=== PATIENT | female | born 1985 | race Two or more races ===

== ENCOUNTER 2024-08-31 19:44 | Emergency (ER) | payer OTHER ==
[~2024-08-31] VITALS: Ht 175.3 cm; Wt 130.4 kg
--- NOTE | 2024-08-31 21:57 | ED.PDOC ---
Gail. trauma (HPI) HPI Comments Pt C/O slip and fall today landing on her hands and knees. Pt C/O pain to the right shoulder and forearm, and bilateral knees. Pt has noted bruising and abrasions noted in triag. DENIES NUMBNESS, WEAKNESS, NECK PAIN, BACK PAIN, HEAD INJURY, OR LOC. 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 History Family History Family History: Reviewed,noncontributory to illness Social History Smoker: Non-Smoker Alcohol: Denies ETOH Use Drugs: Denies Drug Use Constitutional: denies: chills, diaphoresis, fatigue, fever, malaise, sweats, weakness, others EENTM: denies: blurred vision, double vision, ear bleeding, ear discharge, ear drainage, ear pain, ear ringing, eye pain, eye redness, hearing loss, mouth pain, mouth swelling, nasal discharge, nose bleeding, nose congestion, nose pain, photophobia, tearing, throat pain, throat swelling, voice changes, others Respiratory: denies: cough, hemoptysis, orthopnea, SOB at rest, shortness of breath, SOB with excertion, stridor, wheezing, others Cardiovascular: denies: chest pain, dizzy spells, diaphoresis, Dyspnea on exertion, edema, irregular heart beat, left arm pain, lightheadedness, pal pitations, PND, syncope, others Gastrointestinal: denies: abdomen distended, abdominal pain, blood streaked bowels, constipated, diarrhea, dysphagia, difficulty swallowing, hematemesis, melena, nausea, poor appetite, poor fluid intake, rectal bleeding, rectal pain, vomiting, others Genitourinary: denies: abnormal vagina bleeding, burning, dyspareunia, dysuria, flank pain, frequency, hematuria, incontinence, pain, , vagina discharge, urgency, others Neurological: denies: dizziness, fainting, headache, left sided numbness, left sided weakness, numbness, paresthesia, pre-existing deficit, right sided numbness, right sided weakness, seizure, speech problems, tingling, tremors, weakness, others Musculoskeletal: reports: others (RIGHT SHOULDER AND FOREARM PAIN.); denies: back pain, gout, joint pain, joint swelling, muscle pain, muscle stiffness, neck pain Integumetry: reports: bruises (FOREARM RIGHT); denies: change in color, change in hair/nails, dryness, laceration, lesions, lumps, rash, wounds, others Allergic/Immunocompromised: denies: Difficulty Healing, Frequent Infections, Hives, Itching, others Hematologic/Lymphatic: denies: anemia, blood clots, easy bleeding, easy bruising, swollen glands, others Endocrine: denies: excessive hunger, excessive sweating, excessive thirst, excessive urination, flushing, intolerance to cold, intolerance to heat, unexplained weight gain, unexplained weight loss, others Psychiatric: denies: anxiety, bipolar disorder, depression, hopeless, panic disorder, schizophrenia, sleepless, suicidal, others Physical Exam General Appearance: No Apparent Distress, Normal HEENT: Normal ENT Inspection, Pharynx Normal, TMs Normal Neck: Full Range of Motion, Non-Tender Respiratory: Chest Non-Tender, Lungs Clear, No Respiratory Distress, Normal Breath Sounds Cardiovascular: No Edema, No JVD, No Murmur, No Gallop, Normal Peripheral Pulses, Regular Rate/Rhythm Breast Exam: Deferred Gastrointestinal: No Organomegaly, Non Tender, No Pulsatile Mass, Normal Bowel Sounds, Soft Genitalia: Deferred Pelvic: Deferred Rectal: Deferred Extremities: Normal capillary refill, Normal inspection, Normal range of motion, Non-tender, No pedal edema Musculoskeletal : Location: Right Extremity Location: Forearm (MODERATE TENDERNESS AND EDEMA RIGHT ANTERIOR PROXIMAL FOREARM WITH NOTED ECCHYMOSIS NO NOTED ABRASIONS OR LACERATIONS STRENGTH SENSORY MOTION INTACT POSITIVE RADIAL PULSE. TENDERNESS PALPATED OVER RIGHT ANTERIOR SHOULDER WITHOUT NOTED CREPITUS, LESIONS, ABRASIONS OR LACERAT IONS FULL RANGE OF MOTION WITH DISCOMFORT), Shoulder Apperance: Normal Neurologic: Alert, project control analyst II-XII nml as Tested, No Motor Deficits, Normal Affect, Normal Mood, No Sensory Deficits Cerebellar Function: Normal Reflexes: Normal Skin: Dry, Normal Color, Warm Lymphatic: No Adenopathy Was a procedure done? Was a procedure done?: No Differential Diagnosis Multiple Trauma: Fractures, Abrasions, Contusion, Hematoma, Laceration X-Ray, Labs, Meds, VS Vital Signs Date Time Temp Pulse Resp B/P (MAP) Pulse Ox O2 Delivery O2 Flow Rate FiO2 08/31/24 20:25 97.9 75 18 148/98 (115) 98 Current Medications Medications (Trade) Dose Ordered Sig/Ernesto Route Start Time Stop Time Status Last Admin Acetaminophen/ Hydrocodone Bitart ([place] 5/325MG Tab) 1 tab ONCE ONCE PO 08/31/24 22:15 08/31/24 22:16 DC 08/31/24 22:33 X-Ray, Labs, Meds, VS Comment RIGHT FOREARM AND RIGHT SHOULDER X-RAY SHOWS NO ACUTE FINDINGS OR OSSEOUS LESIONS. WE WILL SCRIPT MUSCLE RELAXER AND MEDROL DOSEPAK. DISCUSSED RICE. ADVISED TO FOLLOW UP WITH HER PCP IN 2-3 DAYS CONSIDER FURTHER IMAGING FOR CON TINUED SYMPTOMS. ER RETURN PRECAUTIONS GIVEN PATIENT INDICATES UNDERSTANDING AND AGREES WITH DISCHARGE PLAN OF CARE. Time of 1ST Reevaluation: 22:48 Reevaluation 1ST: Improved Patient Education/Counseling: Diagnosis, Treatment, Prognosis, Need For Follow Up Family Education/Counseling: No Family Present Departure 1 Departure Time of Disposition: 22:48 Impression: Primary Impression: Contusion of forearm, right Qualified Codes: S50.11XA - Contusion of right forearm, initial encounter Additional Impressions: Right shoulder strain Qualified Codes: S46.911A - Strain of unspecified muscle, fascia and tendon at shoulder and upper arm level, right arm, initial encounter Contusion of left knee Qualified Codes: S80.02XA - Contusion of left knee, initial encounter Contusion of right knee Qualified Codes: S80.01XA - Contusion of right knee, initial encounter Disposition: HOME / SELF CARE / HOMELESS Condition: Stable e-Prescriptions Cyclobenzaprine Hcl (Cyclobenzaprine Hcl) 5 Mg Tab 1 TAB PO QPM PRN for 7 Days, #7 TAB Prov: LUISITO CHAVEZ 08/31/24 Methylprednisolone (Medrol Dosepak) 4 Mg Anthony 4 MG PO UD for 6 Days, #21 TAB UAD Prov: LUISITO CHAVEZP 08/31/24 Discharged With: Self Critical Care Note Critical Care Time?: No Stability Stability form required: No LUISITO CHAVEZ Aug 31, 2024 21:57
[2024-08-31] MEDS: HYDROcodone-ACET 5/325MG TAB PO ONE (22:33)
--- NOTE | 2024-08-31 22:39 | DVH ---
EXAM: XY R FOREARM XRAY HISTORY: FALL/PAIN/SWELLING COMPARISON: None TECHNIQUE: AP and lateral views of the left forearm were performed. FINDINGS/IMPRESSION: No acute fracture of the left radius or ulna.
--- NOTE | 2024-08-31 22:40 | DVH ---
EXAM: XY R SHOULDER 2+ VIEW XRAY HISTORY: FALL INJURY PX COMPARISON: None TECHNIQUE: Four views of the right shoulder were performed. FINDINGS: No acute fracture or dislocation are identified about the right shoulder. No significant degenerativ e changes or loss of subacromial space. IMPRESSION: Unremarkable radiographs of the right shoulder.
[2024-08-31 22:47] VITALS: BP 152/99; PULSE 65; RESP 18; TEMP 99; O2SAT 98
[2024-08-31] MEDS ORDERED: METH4PAK PO (22:51)
[2024-08-31] MEDS ORDERED: CYCL-839 PO (22:51)
[2024-08-31] MEDS ORDERED: CYCL-837 PO (22:54)
== END 2024-08-31 23:20 | disposition home or self-care (01) ==
LOC: ER 19:44
DX: S46.911A Strain of unspecified muscle, fascia and tendon at shoulder and upper arm level, right arm, initial encounter (principal); S50.11XA Contusion of right forearm, initial encounter; S80.01XA Contusion of right knee, initial encounter; S80.02XA Contusion of left knee, initial encounter; W01.0XXA Fall on same level from slipping, tripping and stumbling without subsequent striking against object, initial encounter; Y93.89 Activity, other specified; Y92.89 Other specified places as the place of occurrence of the external cause; Y99.8 Other external cause status
CPT/HCPCS: 73030; 73090